=== PATIENT | female | born 1985 | race Caucasian/White ===

== ENCOUNTER → 2018-09-02 14:19 | Outpatient (CLI) | payer MEDICAID, SELFPAY ==
[2018-09-02 16:06] LABS: Follicle Stimulating Hormone 5.1 mIU/mL; Luteinizing Hormone 3.9 mIU/mL; Prolactin 4.2 ng/mL
[2018-09-02 16:08] LABS: Hemoglobin A1c 5.5 % (4.2-6.3)
== END ==
PROVIDERS: Visit Provider Obstetrics & Gynecology
DX: N92.6 Irregular menstruation, unspecified (principal)
CPT/HCPCS: 36415; 83001; 83002; 83036; 84146

== ENCOUNTER 2018-12-26 09:49 | Day surgery (SDC) | payer MEDICAID, SELFPAY ==
[2018-12-23 15:40] LABS: Hematocrit 43.1 % (37-47); Hemoglobin 14.3 g/dl (12.0-15.0); Mean Corp Hgb Conc 33.2 g/gl (32-36); Mean Corpuscular Volume 93.3 fL (81-99); Mean Platelet Vol. 11.5 fl (6.2-12.0); Platelet Count 217 K/mm3 (150-450); RBC Distribution Width CV 12.4 % (11.6-14.6); RBC Distribution Width SD 41.9 fl (35.1-43.9); Red Blood Count 4.62 M/mm3 (4.2-5.4); White Blood Count 7.7 K/mm3 (4.4-11.0)
[2018-12-23 15:51] LABS: Prothrombin Time (Protime)PT. 13.4 SECONDS (11.7-14.9)
[2018-12-23 15:55] LABS: Scan Indicated on CBC? Y/N NO
[2018-12-23 16:22] LABS: Pregnancy, Serum, hCG Quali. NEGATIVE Negative (0-9 Nonpreg)
[2018-12-26] VITALS (8 sets, daily range): BP systolic 120–129; BP diastolic 64–79; PULSE 70–84; RESP 16–18; TEMP 36.2–37.1; O2SAT 97–100; BMI 30.9
[2018-12-26 10:10] LABS: Internal QC Validated? YES +Cl - CLEAR BKGD; Pregnancy, Urine Negative Negative
--- NOTE | 2018-12-26 12:00 | EMB_PTH ---
PATIENT: KRUPA TIWARI LOC: [facility] [place] U#:[id number] AGE/SX: 33/F ROOM: RE12/26/[address]: Dr. Leo Gross MD : [id number] BED: DIS: 12/26/2018 SPEC #: [id number] RECD: 12/26/18 14:58 STATUS: NANA DELROY #: [id number] GIL: 12/26/18 12:[address]: Leo Gross DEPT: SURGICAL PATHOLOGY RECD BY: Peewee Rae ENTERED: 12/29/18 08:12 SP TYPE: ENDOM BX/C FRANCISCA DR: Nichelle Rico PA-C Tissues: Endometrium, NOS Procedures: Surgery Specimen Level IV HEADER OPERATION: Hysteroscopy, D & C, Adina PRE-OP DIAGNOSIS: Irregular bleeding TISSUE SUBMITTED: Endometrial curettings MICROSCOPIC DIAGNOSIS Endometrial curettings: Secretory endometrium. SJ:eusebio 12/30/18 MICROSCOPIC DESCRIPTION Slides are reviewed. GROSS DESCRIPTION Received in fixative is one container labeled with the patient's name and designated endometrial curettings. The specimen consists of multiple irregular fragments of ricketts-pink to red soft tissue that in aggregate measure 3 x 2.5 x 0.3 cm. The entire specimen is submitted in one cassette. / SJ:rg 12/29/18 TC:4 CPT: 76253
--- NOTE | 2018-12-26 12:19 | DCINST_ITS ---
You will use the following diet at home:: No restrictions, Regular Discharge Activity: Return to Normal Activity, May Drive, May not drive while taking narcotic pain medications., May Shower Return to work on:: 12/29/18 May shower in (days): 0 May resume sexual activity in: 2 weeks Call your doctor if your incision/area has: Sudden Increased Bleeding, Increased Pain/ Swelling, Foul Smelling Discharge Call your doctor if you observe: Fever of 101 or Higher, Inability to urinate, Inability to have a bowel movement, Using more than one pad per hour, Shortness of breath, Chest pain, Calf discomfort, Uncontrolled pain Cleanse incision/area with: Soap & Water Allergies/Adverse Reactions: Allergies No Known Allergies Allergy (Verified 12/19/18 11:21) Medications to take at Discharge Ibuprofen 600 mg PO 4X/DAY #30 tab 12/26/18 Oxycodone [Oxyir] 5 mg PO Q4H PRN PRN 7 Days #14 tab 12/26/18 The following prescriptions were given: Oxycodone [Oxyir] 5 mg PO Q4H PRN PRN 7 Days #14 tab PRN Reason: Severe Pain (6-10/10) Ibuprofen 600 mg PO 4X/DAY #30 tab Primary Care Physician: Nichelle Rico PA-C [Primary Care Provider] - Test Results: Test results from this visit will be discussed in further detail at your follow- up appointment, if applicable. Please Follow Up With: Leo Gross MD When: one week Proposed Discharge Date: 12/26/18
--- NOTE | 2018-12-26 12:20 | PCM.OPRPT ---
Report of Operation Date of Procedure: 12/26/18 Pre-Operative Diagnosis: Menorrhagia, dysmenorrhea Post-Operative Diagnosis: Same Surgery/Procedure Performed:: Hysteroscopy, Dilation and Curettage, Adina Endometrial Ablation Description of Surgical Findings:: Normal appearing uterine cavity, lining. Cervix no lesions. Uterus sounds to 9 cm. Adina set to 6.5 cm cavity length. Duration of ablation 120 seconds. overnight associate: None Type of Anesthesia:: MAC Anesthesiologist: Alvaro Brown Special Medications: none Specimen's removed: Endometrial Curettings Drains: none Estimated Blood Loss (mL): minimal Fluids Replaced: 500cc LR Description of Procedure: Dayami was taken to the OR with IV running. She was given two grams of Cefotetan intravenously for surgical prophylaxis. MAC anesthesia was then introduced without complication. She was then prepped and draped inn the dorsal lithotomy position. A red rubber catheter was used to drain the bladder. A weighted speculum was placed in the posterior vagina, the cervix was identified and the anterior lip grasped with a single toothed tenaculum. The uterus was sounded. The cervix was then serially dilated to 24 [place] without difficulty. The hysteroscope was then introduced into the uterine cavity. Findings are as above. A sharp curettage was then performed with resultant endometrial tissue sent for pathology. The Adina device was then placed, put through it's safety check then activated. The endometrial ablation time was 120 seconds. The device was then removed. The hysteroscope was returned to the endometrial cavity and appearance was typical for post ablation. All instruments were then removed from the vagina. She was reversed from anesthesia and taken tot he recovery room in stable condition. Sponge and instrument counts were correct. Grafts/Implants Used: none - Complications none - Admit VTE Documentation VTE Present on Admission: No VTE Mechan Device Prophylaxis: SCD's VTE Pharm Prophylaxis ordered?: No
== END 2018-12-26 14:39 | disposition home or self-care (01) ==
LOC: SDC 09:51 → AC 09:51
PROVIDERS: Anesthesiology; Family Provider Family Medicine; PCP Family Medicine; Referring Provider Obstetrics & Gynecology; Visit Provider Obstetrics & Gynecology
PROC: 0U5B8ZZ Destruction of Endometrium, Via Natural or Artificial Opening Endoscopic (ICD-10-PCS; CPT 58558; principal; 2018-12-26 11:45)
DX: N92.0 Excessive and frequent menstruation with regular cycle (principal); N94.6 Dysmenorrhea, unspecified; F17.200 Nicotine dependence, unspecified, uncomplicated; Z87.442 Personal history of urinary calculi
CPT/HCPCS: 58558; 36415; 81025; 84703; 85027; 85610; 85730; 86850; 86900; 88305; J7120; J2405

== ENCOUNTER → 2019-05-06 | Outpatient (CLI) | payer MEDICAID, SELFPAY ==
[2018-12-26 10:11] VITALS: BMI 30.9
[2019-05-15 16:41] LABS: HPV HC, High Risk Negative (Negative)
== END | disposition home or self-care (01) ==
PROVIDERS: Family Provider Family Medicine; PCP Family Medicine; Referring Provider Obstetrics & Gynecology; Visit Provider Obstetrics & Gynecology
DX: Z12.4 Encounter for screening for malignant neoplasm of cervix (principal)
CPT/HCPCS: 87624; 88175; G0145